=== PATIENT | female | born 1985 | race Caucasian/White ===

== ENCOUNTER 2022-04-19 12:11 | Emergency (ER) | payer BC, SELFPAY ==
[2022-04-19 12:12] VITALS: BP 101/79; PULSE 91; RESP 14; TEMP 36.2; O2SAT 100; BMI 16.6
--- NOTE | 2022-04-19 12:57 | ED.VIS.GI ---
HPI HPI - GI History of Present Illness Chief Complaint: Abd Pain Narrative Narrative: Patient states she has had chronic pancreatitis for the last year or so, with constant discomfort. In the last week it has been a lot worse. She has been vomiting, the pain is usually in the midline but now she is also having at toward the flanks on both sides, but it radiates into her back and both shoulder blades, sometimes food makes it worse other times it does not depending on what she is eating. Normal bowel movements, she states sometimes there is residue but no diarrhea or blood or melena. Normal urination. No fevers or chills. No complaints above the abdomen. She states this started because of a combination of short-term heavy alcohol use and/or gallstones, but she was told at the time it was most likely due to gallstones, she has not needed or had a cholecystectomy. After obtaining all of this and discussing the possibility of a CT scan, the patient states that she just had a CT scan this past week when she was at a different ER, [facility], and states that she was diagnosed with pseudocyst. She has not had a personal discussion with her pig machine supervisor who is also at , yet. [facility] Medical History (Updated 04/19/22 @ 17:[address] Braeden Navarrete MD) delivery delivered Pancreatitis Home Medications Creon 04/19/22 [History Last Taken Unknown] Marinol 04/19/22 [History Last Taken Unknown] oxycodone-acetaminophen 04/19/22 [History Last Taken Unknown] promethazine 04/19/22 [History Last Taken Unknown] Allergy/AdvReac Type Severity Reaction Status Date / Time No Known Allergies Allergy Verified 04/19/22 12:12 Surgical History (Updated 04/19/22 @ 13:[address] Braeden Navarrete MD) H/O hernia repair History of Social History Smoking Status: Never smoker ROS ROS ED Constitutional Constitutional ED: Reports malaise; Denies chills or fever(s) Eyes Eyes: Denies change in vision or diplopia ENT ENT ED: Denies rhinorrhea or sore throat Cardiovascular Cardiovascular: Denies chest pain or palpitations Respiratory/Chest Respiratory/Chest: Denies cough or dyspnea Gastrointestinal Gastrointestinal: Reports abdominal pain, nausea and vomiting; Denies diarrhea, hematochezia or melena Genitourinary Genitourinary ED: Denies dysuria or hematuria Musculoskeletal Musculoskeletal: Denies back pain or neck pain Integumentary Denies abscess or rash Neurologic Neurologic: Denies headache(s), paresthesias or weakness Psychiatric Psychiatric: Denies anxiety or suicidal thoughts EXAM Physical Exam Const Vital Signs: 04/19/22 12:12 04/19/22 16:11 Temperature 97.1 F L Temperature Source Temporal Pulse Rate 91 88 Respiratory Rate 14 16 Blood Pressure 101/79 102/60 Blood Pressure Mean 86 74 Pulse Ox 100 99 Oxygen Delivery Method Room Air Room Air Positive well nourished and well developed General Appearance ED: well developed and NAD HEENT Reports moist mucous membranes normocephalic and atraumatic Eyes PERRL and EOMs intact bilaterally Neck full ROM and supple Resp normal respiratory effort and clear to auscultation bilaterally Cardio regular rate, regular rhythm and no murmurs GI non-distended GI Narrative: Diffuse tenderness, worse in epigastrium/supraumbilical area per patient. No palpable hernia. No distention normal bowel sounds present. No guarding or rebound tenderness. Auscultation: normoactive bowel sounds Palpation: soft Back/Spine no CVA tenderness General Back: other FROM Extremity normal to inspection General Extremety ED: Negative for edema, pulses abnormal or tenderness General Extremity: Negative for edema or pulses abnormal Neuro oriented x3, CN's II-XII intact bilaterally, no sensory deficits noted and gait normal Sensorium / Orientation: awake and alert Motor Exam: strength 5/5 throughout Psych thought process normal Mood & Affect: tearful Skin no rashes or lesions noted and no wounds MDM MDM MDM Narrative Medical decision making narrative: Labs obtained in this patient and she was given IV fluids and pain control, and Zofran. Her labs are normal including her lipase. They tried to pull up her CT scan from this past week on outpatient EMR that she has access to from outside hospital, however the report is not available there yet. Upon talking to them more, it became evident that this was just yesterday, and furthermore, the and patient state that they were offered admission but there were no beds available. When I asked them why they were offered admission, it sounds like it was mostly because of pain control. The at this point admits that he brought her here seeking a second opinion, because they have been seen GI Dr. Garcia at for almost a year, they understand that she has pseudocysts, she is in a lot of pain, but nobody is doing anything. It was at this time I explained to them that not all pseudocysts require drainage, it is a calculated risk/benefit ratio, and I do not know enough about her imaging to tell them what is indicated right now. Unfortunately she presents on weekend where this hospital has no GI coverage. I did submit after obtaining the patient's written consent for results of her CT from yesterday in addition to her recent imaging she had in March including an MRI of the abdomen/pelvis and a biliary echo. After several hours I was able to obtain these results basically they show the biliary echo was obtained in February and showed what may be a pancreatic pseudocyst and they recommended an MRI which was obtained at the beginning of March, showed that the cyst was 1.4 x 1.2 x 1.1 cm, as of the CT scan that she had at yesterday, I reviewed these results as well as the ED note which was really not containing an MDM, it appears that the cyst has interval increase in size to 2.5 x 1.7 cm. I discussed this finding with the patient. It does not change what we do here today since I do not have a pig machine supervisor on-call to discuss this with. She states she is already established with a pig machine supervisor and also states she is in pain management, on oxycodone that she gets from pain management so she is not looking for a prescription, and they are considering a pain pump for her. At this time she is stable for discharge home and doing much better clinically. Lab Data Attestation: I reviewed the patient's lab results. Labs: Laboratory Results - last 24 hr 04/19/22 04/19/22 04/19/22 12:30 12:30 12:30 WBC 4.3 L RBC 4.16 L Hgb 12.6 Hct 39.8 MCV 95.7 MCH 30.3 MCHC 31.7 L RDW Std Deviation 45.4 H RDW Coeff of Errol 12.9 Plt Count 310 MPV 11.3 Immature Gran % (Auto) 0.200 Neut % (Auto) 48.7 Lymph % (Auto) 41.1 H [place] % (Auto) 8.4 Eos % (Auto) 0.9 Baso % (Auto) 0.7 Absolute Neuts (auto) 2.1 Absolute Lymphs (auto) 1.77 Nucleated RBC % 0 Sodium 141 Potassium 3.6 Chloride 106 Carbon Dioxide 28.0 Anion Gap 7 BUN 7 Creatinine 0.63 Estim Creat Clear Calc 83.91 Est GFR (MDRD) Af Amer 136 Est GFR (MDRD) Non-Af 112 BUN/Creatinine Ratio 11.1 Glucose 102 Calcium 8.6 Total Bilirubin 0.20 AST 17 ALT 11 L Alkaline Phosphatase 46 Total Protein 7.0 Albumin 3.7 Globulin 3.3 Albumin/Globulin Ratio 1.1 Lipase 208 Urine Color Yellow Urine Clarity Clear Urine pH 6.0 Ur Specific [place] 1.015 Urine Protein Negative Urine Glucose (UA) Normal Urine Ketones Negative Urine Occult Blood Negative Urine Nitrite Negative Urine Bilirubin Negative Urine Urobilinogen Normal Ur Leukocyte Esterase Negative Urine RBC 0 SEEN Urine WBC 0 SEEN Ur Squamous Epith Cells 0-5 SEEN Urine Bacteria 0 SEEN Urine Mucus 0 SEEN Discharge Plan Triage Chief Complaint: Abd Pain ED Provider: Braeden Navarrete Dx/Rx/DC Orders Clinical Impression: Abdominal pain, chronic, epigastric, Chronic pancreatitis, Pancreatic pseudocyst Instructions: Pancreatitis Chronic Dc Prescriptions: No Action Creon Marinol oxycodone-acetaminophen promethazine Primary Care Provider: Deny Hermosillo Referrals: Dr. Jose [Other] - As soon as possible Deny Hermosillo MD [Primary Care Provider] - Disposition Disposition: Home, Self Care
[2022-04-19] MEDS: 0.9% Normal Saline 1,000 ML 1000 ML IV (13:03)
[2022-04-19] MEDS: Ondansetron 4 MG/2 ML Vial IV (13:04)
[2022-04-19] MEDS: HYDROmorphone 1 MG/ML Syringe IV ×2 (13:05→16:23)
[2022-04-19 13:10] LABS: Bacteria 0 SEEN /hpf (None Seen); Mucous, Urine 0 SEEN /hpf (<or=2+); Red Blood Cells-Urine 0 SEEN /hpf (0-5); White Blood Cells 0 SEEN /hpf (0-5)
[2022-04-19 13:13] LABS: Absolute Lymphocyte Count 1.77 X10^3/uL (0.83-4.51); Absolute Neutrophil Count 2.1 X10^3/uL (2.0-7.7); Basophil# 0.03 X10^3/uL; Basophil% 0.7 % (0-1); Color, Urine Yellow (Yellow); Eosinophil# 0.04 X10^3/uL; Eosinophils% 0.9 % (0-5); Glucose, Dipstick Normal (Normal); Hematocrit 39.8 % (37-47); Hemoglobin 12.6 g/dL (12.0-15.0); Ketone-Dipstick Negative (Negative); Leukocyte Esterase-Dipstick Negative /ul (Negative); Lymphocyte # 1.77 X10^3/ul (0.83-4.51); Lymphocyte % 41.1 % (19-41); Mean Corp Hgb Conc 31.7 g/dL (32-36); Mean Corpuscular Hgb 30.3 pg (27.0-32.0); Mean Corpuscular Volume 95.7 fL (81-99); Mean Platelet Vol. 11.3 fl (6.2-12.0); Monocyte# 0.36 X10^3/uL; Monocyte% 8.4 % (0-10); NRBC Flagged by Analyzer 0 % (0-5); Neutrophil % 48.7 % (47-70); Nitrite-Dipstick Negative (Negative); Occult Blood-Urine Negative /ul (Negative); Platelet Count 310 K/mm3 (150-450); Protein-Dipstick Negative (Negative); RBC Distribution Width CV 12.9 % (11.6-14.6); RBC Distribution Width SD 45.4 fl (35.1-43.9); Red Blood Count 4.16 M/mm3 (4.2-5.4); Specific Gravity, Urine 1.015 (1.002-1.030); Urine Bilirubin Dipstick Negative (Negative); Urine Clarity Clear (Clear); Urine Urobilinogen Normal (Normal); White Blood Count 4.3 K/mm3 (4.4-11.0)
[2022-04-19 13:23] LABS: Squamous Epithelial Cells - UA 0-5 SEEN /hpf (5-10)
--- NOTE | 2022-04-19 13:40 | ED.RN ---
THIS RN IN TO HAVE PT SIGN FOR MEDICAL RECORDS FROM VISIT TO PREVIOUS HOSPITAL
[2022-04-19 13:48] LABS: ALB/GLOB Ratio 1.1 RATIO (0.9-2.4); AST(SGOT) 17 U/L (15-37); Alanine Aminotransfer ALT/SGPT 11 U/L (13-56); Albumin, Serum 3.7 g/dL (3.2-5.0); Alkaline Phosphatase 46 U/L (45-117); Anion Gap 7 (5-15); BUN 7 mg/dL (7-18); BUN/Creat Ratio 11.1 RATIO (10-20); Calcium,Total 8.6 mg/dL (8.5-10.1); Chloride 106 mmol/L (98-107); Creatinine, Serum 0.63 mg/dL (0.55-1.02); EST Glomerular Filtration Rate 112 mL/min (>60); Est Glom Filt Rate - Afr Amer 136 mL/min (>60); Estimated Creatinine Clearance 83.91 ml/min; Globulin 3.3 g/dL (2.2-4.2); Glucose 102 mg/dL (74-106); Lipase 208 U/L (73-393); Potassium 3.6 mmol/L (3.5-5.1); Sodium Level 141 mmol/L (136-145)
[2022-04-19] MEDS: Morphine 4 MG/ML Syringe IV (15:51)
[2022-04-19 16:11] VITALS: BP 102/60; PULSE 88; RESP 16; O2SAT 99
[2022-04-19 17:17] VITALS: PULSE 68; RESP 17; O2SAT 99
== END 2022-04-19 17:42 | disposition home or self-care (01) ==
PROVIDERS: Emergency Provider Emergency Medicine; PCP Family Medicine; Visit Provider Emergency Medicine
DX: R10.13 Epigastric pain (principal); K86.1 Other chronic pancreatitis; G89.29 Other chronic pain; M25.512 Pain in left shoulder; M25.511 Pain in right shoulder; K86.3 Pseudocyst of pancreas; M54.9 Dorsalgia, unspecified; Z79.899 Other long term (current) drug therapy
CPT/HCPCS: 80053; 81001; 83690; 85025; 96361; 96374; 96375; 96376; 99283; J7030; A4216; J2405